=== PATIENT | male | born 1970 | race Caucasian/White ===

== ENCOUNTER 2020-10-02 18:25 | Emergency (ER) | payer OTHER ==
[~2020-10-02] VITALS: Ht 172.7 cm; Wt 69.4 kg
[2020-10-02] MEDS ORDERED: NORCO 5-325 TA1 EAC2 PO (19:26)
[2020-10-02] MEDS ORDERED: IBUPROFEN 800800 M1 PO (19:26)
[2020-10-02] MEDS ORDERED: KEFLEX500 M1 PO (19:26)
[2020-10-02 19:55] VITALS: BP 144/89
== END 2020-10-02 19:57 | disposition home or self-care (01) ==
LOC: M.ERS 18:25
DX: S61.310A Laceration without foreign body of right index finger with damage to nail, initial encounter (principal); I10 Essential (primary) hypertension; W23.0XXA Caught, crushed, jammed, or pinched between moving objects, initial encounter; Y93.89 Activity, other specified; Y92.89 Other specified places as the place of occurrence of the external cause; Y99.8 Other external cause status